=== PATIENT | female | born 2005 | race Caucasian/White ===

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

== ENCOUNTER → 2024-08-18 | Outpatient (CLI) | payer OTHER ==
--- NOTE | 2024-08-19 20:00 | MR ---
EXAMINATION TYPE: MRI right ankle without IV contrast DATE OF EXAM: 08/18/2024 COMPARISON: None HISTORY: Right ankle pain, spontaneous rupture of extensor tendon, Pain and swelling x1 week, no know n injury, Standard multiplanar, multisequence MRI departmental protocol Multiplanar, multisequence images of the right ankle were acquired without contrast. Diffusion weight ed imaging was performed. FINDINGS: Achilles tendon is intact. Flexor tendons are intact. Peroneal tendons are intact. Extensor tendons are intact. Plantar fascia is intact. Syndesmotic ligaments are intact. Anterior talofibular, posterior talofibular and cocaine talofibular ligaments are intact. Deep and superficial deltoid ligaments are intact. 4 mm ossicle along the dorsal aspect of the talonavicular joint with mild associated edema. Bone curry ow signal is otherwise normal. No significant degenerative changes. No sizable joint effusion. Talar dome is intact. Mild soft tissue edema along the anterior aspect of the ankle adjacent to the extensor tendons. Small ganglion along the posterior tibiotalar joint measuring 13 x 6 x 7 mm. IMPRESSION: 1. Intact extensor tendons. Mild soft tissue edema along the anterior ankle. 2. Small ossicle along the dorsal talonavicular joint measuring 4 mm with mild associated bone marrow edema. Findings may relate to acute/subacute injury. Correlate for point tenderness. 3. Small ganglion along the posterior tibiotalar joint. [facility], Workstation: [id number], 08/19/2024 7:58 PM
== END | disposition home or self-care (01) ==
LOC: RADMRIMAIN 20:30
PROVIDERS: ATTEND Orthopaedic Surgery Hand Surgery
DX: M66.271 Spontaneous rupture of extensor tendons, right ankle and foot

== ENCOUNTER 2025-02-26 22:37 | Emergency (ER) | payer OTHER ==
[2025-02-26] MEDS: LIDOCAINE/EPINEPHR/TETRACAINE 5 ML BOTTLE TOPICAL ONE (22:56)
--- NOTE | 2025-02-26 23:26 | ED ---
Animal Bite HPI - General Chief Complaint: Animal Bite Stated Complaint: Dog Bite Bottom Lip Time Seen by Provider: 02/26/25 23:25 Source: patient, family, RN notes reviewed Mode of arrival: ambulatory Limitations: no limitations - History of Present Illness Initial Comments: 19-year-old female accompanied by her mother presenting to the ER for evaluation of a dog bite. Patient states she was attempting to feed her dog a treat and was holding the treatment close to her face. She attempted to give the dog a kiss when the dog accidentally bit patient's bottom lip. Patient is reporting a laceration to her bottom lip. Bleeding is controlled with compression. She denies any other injuries. Dog is up-to-date on vaccinations. Patient is up-to-date on tetanus. - Related Data Home Medications Medication Instructions Recorded Confirmed Multivitamins, Thera [Multivitamin] 1 each PO DAILY@1200 07/11/14 07/12/14 Previous Rx's Medication Instructions Recorded Ondansetron Odt [Zofran Odt] 4 mg PO Q8HR PRN #7 tab 07/12/14 Ondansetron Odt [Zofran Odt] 4 mg PO Q8HR PRN #15 tab 12/06/23 Amoxic-Pot Clav 875-125Mg 1 tab PO Q12HR 5 Days #10 tab 02/27/25 [Augmentin 875-125] Allergies Allergy/AdvReac Type Severity Reaction Status Date / Time acetaminophen Allergy Nausea & Verified 12/05/23 22:10 [From Tylenol-Codeine #3] Vomiting Anesthetics - Gayle Type- Allergy Nausea & Verified 12/05/23 22:10 Parabens Vomiting [Anesthetics - Gayle Type] codeine phosphate Allergy Nausea & Verified 12/05/23 22:10 [From Tylenol-Codeine #3] Vomiting Review of Systems ROS Statement: Those systems with pertinent positive or pertinent negative responses have been documented in the HPI. ROS Other: All systems not noted in ROS Statement are negative. Past Medical History Past Medical History: No Reported History History of Any Multi-Drug Resistant Organisms: None Reported Past Surgical History: Adenoidectomy, Ear Surgery, Tonsillectomy Past Psychological History: No Psychological Hx Reported Smoking Status: Never smoker Past Alcohol Use History: Rare Past Drug Use History: None Reported General Exam Limitations: no limitations General appearance: alert, in no apparent distress ENT exam: Present: normal exam, normal oropharynx, mucous membranes moist Respiratory exam: Present: normal lung sounds bilaterally. Absent: respiratory distress, wheezes, rales, rhonchi, stridor Cardiovascular Exam: Present: regular rate, normal rhythm, normal heart sounds. Absent: systolic murmur, diastolic murmur, rubs, gallop, clicks Neurological exam: Present: alert, oriented X3, CN II-XII intact Skin exam: Present: warm, dry, intact, normal color, other (1cm gaping laceration to lower lip. no active bleeding wound is not through and through). Absent: rash Course Vital Signs 02/26/25 02/26/25 22:38 23:27 Temperature 98.1 F 97.9 F Pulse Rate 57 L 64 Respiratory 16 18 Rate Blood Pressure 122/64 122/75 O2 Sat by Pulse 97 98 Oximetry Procedures - Laceration Laceration #1 Consent Obtained: verbal consent Indication: laceration Site: lip Size (cm): 1 Description: linear, involves ankur border Depth: simple, single layer Amount (mls): 5 (LET solution) Pre-repair: wound explored, irrigated extensively, deep structures intact Type of Sutures: nylon Size of Sutures: 6-0 Number of Sutures: 3 Technique: simple, interrupted Patient Tolerated Procedure: well Medical Decision Making - Medical Decision Making Was pt. sent in by a medical professional or institution (ZEESHAN Kennedy, SPOOL SALVAGER, urgent care, hospital, or snf...) When possible be specific @ -No Did you speak to anyone other than the patient for history (EMS, parent, family, police, friend...)? What history was obtained from this source @ -Patient's mother, at bedside, aiding in HPI past medical history Did you review nursing and triage notes (agree or disagree)? Why? @ -I reviewed and agree with nursing and triage notes Were old charts reviewed (outside hosp., previous admission, EMS record, old EKG, old radiological studies, urgent care reports/EKG's, snf records)? Report findings @ -No old charts were reviewed Differential Diagnosis (chest pain, altered mental status, abdominal pain women, abdominal pain men, vaginal bleeding, weakness, fever, dyspnea, syncope, headache, dizziness, GI bleed, back pain, seizure, CVA, palpatations, mental health, musculoskeletal)? @ -Laceration, abrasion, contusion, avulsion, foreign body this list is not meant to be all-inclusive EKG interpreted by me (3pts min.). @ -None X-rays interpreted by me (1pt min.). @ -None done CT interpreted by me (1pt min.). @ -None done U/S interpreted by me (1pt. min.). @ -None done What testing was considered but not performed or refused? (CT, X-rays, U/S, labs)? Why? @ -None What meds were considered but not given or refused? Why? @ -Patient refused rabies vaccinations. Did you discuss the management of the patient with other professionals (professionals i.e. , PA, SPOOL SALVAGER, lab, RT, psych nurse, social scientist, positive printer operator, teacher, youth probation officer, case specialist)? Give summary @ -No Was smoking cessation discussed for >3mins.? @ -No Was critical care preformed (if so, how long)? @ -No Were there social determinants of health that impacted care today? How? (Homelessness, low income, unemployed, alcoholism, drug addiction, transportation, low edu. Level, literacy, decrease access to med. care, [facility], rehab)? @ -No Was there de-escalation of care discussed even if they declined (Discuss DNR or withdrawal of care, Hospice)? DNR status @ -No What co-morbidities impacted this encounter? (DM, HTN, Smoking, COPD, CAD, Cancer, CVA, ARF, Chemo, Hep., AIDS, mental health diagnosis, sleep apnea, morbid obesity)? @ -None Was patient admitted / discharged? Hospital course, mention meds given and route, prescriptions, significant lab abnormalities, going to OR and other pertinent info. @ -Discharged. 19 year old female presenting to the ER for evaluation of a dog bite. Vitals stable. Exam remarkable for a 1 cm gaping laceration to bottom lip. Wound is not through and through and there is no active bleeding. Intraoral mucosa is unremarkable teeth are intact. As wound is gaping and involving patient's face wound closed with 3 simple interrupted sutures, see note above. LET solution used for analgesia prior to wound closure. Tetanus is up-to-date. Animal is up-to-date, patient refused rabies vaccinations. Patient was started on Augmentin for infection prophylaxis. I advised suture removal in 3 to 5 days. Suture care discussed. Return parameters discussed. Patient discharged stable condition with follow-up to PCP. Patient verbally expressed understanding and agreement with care plan. Case discussed with ED attending, Dr. Singh. Undiagnosed new problem with uncertain prognosis? @ -No Drug Therapy requiring intensive monitoring for toxicity (Heparin, Nitro, Insulin, Cardizem)? @ -No Were any procedures done? @ -No Diagnosis/symptom? @ -Dog bite/laceration Acute, or Chronic, or Acute on Chronic? @ -Acute Uncomplicated (without systemic symptoms) or Complicated (systemic symptoms)? @ -Uncomplicated Side effects of treatment? @ -No Exacerbation, Progression, or Severe Exacerbation? @ -No Poses a threat to life or bodily function? How? (Chest pain, [place], [place], pneumonia, PE, COPD, DKA, ARF, appy, cholecystitis, CVA, Diverticulitis, Homicidal, Suicidal, threat to staff... and all critical care pts) @ -Possibly dog bite can lead to infections. Disposition Clinical Impression: Dog bite, Laceration Disposition: HOME SELF-CARE Condition: Stable Instructions (If sedation given, give patient instructions): Animal Bite (ED) Additional Instructions: Have sutures removed in 4-5 days. Keep area clean and dry monitor for signs infection including surrounding redness, swelling or purulent drainage. Follow- up with PCP. Return to the ER for any new or worsening concerns. Prescriptions: Amoxic-Pot Clav 875-125Mg [Augmentin 875-125] 1 tab PO Q12HR 5 Days #10 tab Is patient prescribed a controlled substance at d/c from ED?: No Referrals: Norma Bobby MD [Primary Care Provider] - 1-2 days Time of Disposition: 23:26
[2025-02-26 23:28] VITALS: BP 122/75; PULSE 64; RESP 18; TEMP 97.9
== END 2025-02-26 23:49 | disposition home or self-care (01) ==
LOC: EC 22:37
DX: S01.511A Laceration without foreign body of lip, initial encounter (principal); Z88.5 Allergy status to narcotic agent; Z88.4 Allergy status to anesthetic agent; Z88.6 Allergy status to analgesic agent; W54.0XXA Bitten by dog, initial encounter
CPT/HCPCS: 12011; 40650; 99283